=== PATIENT | male | born 1935 | race Caucasian/White ===

== ENCOUNTER 2016-03-24 15:54 | Inpatient (IN) | payer OTHER, MEDICARE ==
[~2016-03-24] VITALS: Ht 180.3 cm; Wt 84.9 kg
[~2016-03-24 15:54] MED LIST: ATOR20TA15 PO; ENAL5TAB PO
[2016-03-25] MEDS ORDERED: EXPAREL PERI-ARTICULAR INJECTION (TOTAL VOL. 60 ML) P-ARTICULR SCH ×2 (07:30)
[2016-03-25] MEDS ORDERED: INSULIN HUMAN REGULAR 1,000 UNITS/10 ML VIAL SQ PRN (07:30)
[2016-03-25] MEDS ORDERED: SODIUM CHLORIDE 0.9% IV SCH ×2 (07:30→12:00)
[2016-03-25] MEDS ORDERED: METOPROLOL TARTRATE 25 MG TAB PO PRN (07:30)
[2016-03-25] MEDS ORDERED: VANCOMYCIN 1000 MG/NS 250 ML (for <70 kg) IV SCH ×2 (07:30)
[2016-03-25] MEDS ORDERED: SODIUM CHLORID 0.9% 500 ML IV SCH (07:30)
[2016-03-25] MEDS ORDERED: CLINDAMYCIN 900 MG/NS 100 ML IV SCH ×2 (07:30)
[2016-03-25] MEDS: LACTATED RINGER'S 1000 ML IV SCH (07:30)
[2016-03-25] MEDS ORDERED: TRANEXAMIC ACID IV SCH ×2 (07:30→12:00)
[2016-03-25] MEDS ORDERED: POVIDONE IODINE 7.5% SCRUB 118 ML BOTTLE TOP SCH (07:30)
[2016-03-25] MEDS ORDERED: SODIUM CHLORIDE 0.9% INJ 100 ML ONE (07:41)
[2016-03-25] MEDS ORDERED: DEXAMETHASONE SOD PHOS 20 MG/5 ML VIAL IV SCH (08:00)
[2016-03-25 08:02] VITALS: BP 124/68; PULSE 58; RESP 20; TEMP 97.7; O2SAT 94
[2016-03-25] MEDS ORDERED: GENTAMICIN SULFATE 80 MG/2 ML VIAL ONE (09:13)
[2016-03-25] MEDS ORDERED: ACETAMINOPHEN 1000 MG/100 ML VIAL IV ONE (09:32)
[2016-03-25] MEDS ORDERED: MIDAZOLAM HCL 2 MG/2 ML VIAL ONE (09:32)
[2016-03-25] MEDS ORDERED: FAMOTIDINE 20 MG/2 ML VIAL ONE (09:32)
[2016-03-25] MEDS: SODIUM CHLOR 0.9% 1000 ML INJ 1,000 ML IV SCH ×2 (11:12→21:22)
[2016-03-25] MEDS ORDERED: ACETAMINOPHEN/HYDROcodone 325 MG/5 MG TAB PO PRN (11:15)
[2016-03-25] MEDS ORDERED: BISACODYL 10 MG SUPP PR PRN (11:15)
[2016-03-25] MEDS ORDERED: SODIUM CHLORIDE 0.9% FLUSH 5 ML FLUSH IVF PRN (11:15)
[2016-03-25] MEDS ORDERED: Post-op Orders (for Pharmacy) MISC XX ONE (11:15)
[2016-03-25] MEDS ORDERED: diphenhydrAMINE HCL 50 MG/ML VIAL IV PRN (11:15)
[2016-03-25] MEDS ORDERED: MORPHINE SULFATE 4 MG/ML INJ IV PUSH PRN (11:15)
[2016-03-25] MEDS ORDERED: ALUMINUM/MAGNESIUM/SIMETH 30 ML CUP PO PRN (11:15)
[2016-03-25] MEDS ORDERED: MAGNESIUM HYDROXIDE SUSP 30 ML CUP PO PRN (11:15)
[2016-03-25] MEDS ORDERED: NALOXONE HCL 0.4 MG/ML AMP IV PRN (11:15)
[2016-03-25] MEDS ORDERED: ONDANSETRON HCL 4 MG/2 ML VIAL IVP PRN (11:15)
[2016-03-25] MEDS ORDERED: ZOLPIDEM TARTRATE 5 MG TAB PO PRN (11:15)
--- NOTE | 2016-03-25 11:16 | PD.OP ---
cc: Vega Bhatia MD Operative Report Date of Surgery: Mar 25, 2016 Preoperative Diagnosis: Right hip severe osteoarthritis Postoperative Diagnosis: Same Procedure: Right total hip arthroplasty Anesthesia: Spinal Surgeon: Vega Bhatia Sorting Grapple Operator(s): ENIO Lim The surgical procedure was assisted by my Advanced Registered Nurse Practitioner. My HARDWOOD FLOOR FINISHER presence was necessary throughout this case for the manipulation and positioning of the surgical extremity. My HARDWOOD FLOOR FINISHER was assisting me throughout the duration of this procedure. The skill set of an Advance Registered Nurse Practitioner was medically necessary to complete this procedure. During the surgical case, the neurosurgical nurse practitioner was working at the back table and the Advance Registered Nurse Practitioner was directly assisting me. Operation and Findings: IMPLANT DESCRIPTION: 1. [place] Gription Cup, acetabular size 60. 2. [place] AltrX polyethylene, neutral. 4. [place]ail femoral stem size 15, no collar, high offset. 5. Femoral head/neck metal, 36, +5. ESTIMATED BLOOD LOSS: 250 cc. JUSTIFICATION FOR PROCEDURE: The patient has end-stage osteoarthritis to the hip. There is an attached conservative measures pathway form in the chart that describes the nonoperative measures that were undertaken prior to consideration of surgical management. The patient understood the risks and benefits of surgical management. See my office notes for further details. PROCEDURE: The patient was brought back to the operative theatre. Adequate anesthesia was obtained. The patient received intravenous clindamycin and vancomycin. The patient was carefully placed on the operative table. The lower extremity was prepped and draped in the usual sterile fashion. Fluoroscopic images were obtained. We made a standard anterior incision over the hip. We dissected through the TFL fascia, exposing the anterior capsule. Arthrotomy was performed in a T-shaped fashion. The capsule was tagged with a #2 FiberWire. End-stage arthritis was identified. Osteotomy was performed through the femoral neck exposing the acetabulum. Remnants of the labrum were resected and osteophytes were removed. We sequentially reamed the acetabulum. We trialed the hip and placed the final cup into position. This was done under fluoroscopic guidance to obtain the appropriate inclination and anteversion. A manhole cover was placed into the acetabular component. We then placed the final polyethylene into position and confirmed that it was well seated. Capsular attachments on the calcar and the inner aspect of the greater trochanter were resected. On the proximal aspect of the femur we used a rongeur , box osteotome, canal finder, sequential broaches and lateralizing rasp. We calcar planed the proximal femur. Then thoroughly irrigated the wound. We trialed the hip with the appropriate size stem. We placed the final stem in to position and trialed again. The hip was stable while it was externally rotated 70 degrees when the leg was lowered to the floor. The final head was applied, and final fluoroscopic images were obtained. The wound was thoroughly irrigated again. Interarticular injection of liposomal bupivacaine was given. The capsule was closed with #2 FiberWire and #1 Vicryl. The deep fascia was closed with a #2 Stratafix, followed by 2-0 Vicryl in the skin and richard. Postop plan is to weight-bear as tolerated. DVT prophylaxis will be performed with Kapil, YAAKOV fitzpatrick, early mobilization, and Lovenox followed by aspirin. Vega Bhatia MD Mar 25, 2016 11:16
[2016-03-25] MEDS ORDERED: NORC5TAB PO (11:19)
[2016-03-25] MEDS ORDERED: ENOX40P SQ (11:19)
[2016-03-25] MEDS ORDERED: ASPI325T PO (11:19)
[2016-03-25] MEDS ORDERED: DO NOT ADM ANY ANTICOAGULANT DRUGS XX PRN (11:37)
--- NOTE | 2016-03-25 11:39 | RADRPT ---
EXAM DATE/TIME: 03/25/2016 10:10 [facility] COMPARISON: No previous studies available for comparison. INDICATIONS : Post-op total right hip arthroplasty. MEDICAL HISTORY : None. SURGICAL HISTORY : None. ENCOUNTER: Initial ACUITY: 1 day PAIN SCORE: Non-responsive. LOCATION: Right hip. FINDINGS: The patient is status post a total hip arthroplasty with a bipolar prosthesis. Prosthesis is well-sea jennifer. Alignment is anatomic. A fracture is not appreciated. CONCLUSION: Anatomic alignment. Quentin Cruz MD FACR Board Certified Radiologist. This report was verified electronically.
[2016-03-25] MEDS ORDERED: LACTATED RINGER'S 1000 ML INJ 1,000 ML IV ONE (12:05)
[2016-03-25] MEDS ORDERED: PROPOFOL 200 MG/20 ML AMP IV ONE (12:05)
[2016-03-25] MEDS ORDERED: ePHEDrine/NS 50 MG/5 ML SYR IV ONE (12:05)
[2016-03-25] MEDS ORDERED: ONDANSETRON HCL 4 MG/2 ML VIAL IV PUSH ONE (12:05)
[2016-03-25] MEDS ORDERED: PHENYLEPH/NS 1000 MCG/10 ML SYR IV ONE (12:05)
[2016-03-25] MEDS ORDERED: *morphine SULFATE 8 MG/ML PERIprocedure ONLY ONE (12:09)
[2016-03-25] MEDS: ACETAMINOPHEN/HYDROcodone 325 MG/5 MG TAB PO PRN ×2 (13:00→21:21)
--- NOTE | 2016-03-25 13:35 | RADRPT ---
EXAM DATE/TIME: 03/25/2016 12:23 [facility] COMPARISON: No previous studies available for comparison. INDICATIONS : Post-op total right hip arthroplasty. MEDICAL HISTORY : None. SURGICAL HISTORY : Appendectomy. Umbilical hernia repair. Bilateral inguinal hernias. ENCOUNTER: Initial ACUITY: 1 day PAIN SCORE: 0/10 LOCATION: Right Hip. FINDINGS: Examination of the hip demonstrates total hip arthroplasty in satisfactory position. The alignment is anatomic. CONCLUSION: Post surgical changes as above. Wayne Lea MD on March 25, 2016 at 13:33 Board Certified Radiologist. This report was verified electronically.
[2016-03-25 15:24] VITALS: BP 134/65; PULSE 60; RESP 18; TEMP 95.3; O2SAT 97
--- NOTE | 2016-03-25 16:03 | HHI.DCPOC ---
Discharge Care Plan Diagnosis: (1) Osteoarthritis of right hip (2) Status post total hip replacement, right Your Health Problems Are: Difficulty with ADL Goals to Promote Your Health * To prevent worsening of your condition and complications * To maintain your health at the optimal level Directions to Meet Your Goals Take your medications as prescribed Follow your dietary instruction Follow activity as directed Keep your appointments as scheduled Take your immunizations and boosters as scheduled If your symptoms worsen call your PCP, if no PCP go to Urgent Care Center or Emergency Room Smoking is Dangerous to Your Health. Avoid second hand smoke Call the 24-hour hour crisis hotline for domestic abuse at Marcos Holt Mar 25, 2016 16:03
--- NOTE | 2016-03-25 16:05 | HHI.FF ---
Face to Face Verification Diagnosis: (1) Osteoarthritis of right hip (2) Status post total hip replacement, right Physical Therapy Gait training, Transfer training, bed to chair Hip: Total hip Right LE Weight Bearing: WB as tolerated Right LE Range of Motion: Active ROM Nursing Nursing: Daysi teaching, Dressing changes Dressing Changes: Daily dressing change I have seen patient Margarito Holland on 03/25/16. My clinical findings support the need for the requested home health care services because: Limited ability to care for self High risk of falls I certify that my clinical findings support that this patient is homebound because: Post-op weakness Unsteady gait/balance Marcos Holt Mar 25, 2016 16:04
[2016-03-25] MEDS ORDERED: WALKER WHEELS/F1 MIS (16:06)
[2016-03-25] MEDS ORDERED: COMMODE 3-IN-11 MIS (16:06)
--- NOTE | 2016-03-25 16:17 | PD.CONS ---
HPI Service [facility] Hospitalists Consult Requested By Dr. Bhatia Reason for Consult Medical management Primary Care Physician No Primary Care Physician Diagnoses: (1) Osteoarthritis of right hip (2) HTN (hypertension) (3) Hyperlipidemia History of Present Illness 81-year-old male with a medical history significant for osteoarthritis, AAA s/p stent placement, HTN, Hyperlipidemia admitted to the Hospital for right hip arthroplasty. Hospital service consulted for medical management. Patient is seen post op. He reports that he is feeling ok. The patient reports he has been having persistent issue with hip arthritis. He failed conservative measures and have decided to undergo right hip arthroplasty. Regarding HTN, he reports that it has been well controlled with Enalapril. He denies any exertional dyspnea or chest pain. Review of Systems Constitutional: DENIES: Fever, Chills Musculoskeletal: COMPLAINS OF: Joint pain Other All other systems reviewed and are negative. Past Family Social History Allergies: Coded Allergies: Penicillin (Verified Allergy, Severe, Hives, 03/25/16) Past Medical History osteoarthritis, AAA s/p stent placement, HTN, Hyperlipidemia Past Surgical History Abdominal aortic aneurysm stent placement Appendectomy Reported Medications Reported Meds & Active Scripts Active [place] (Hydrocodone-Acetaminophen) 5-325 mg Tab 1-2 Tab PO Q4H PRN Aspirin 325 Mg Tab 325 Mg PO DAILY Start Aspirin after Lovenox is completed. Lovenox Inj (Enoxaparin Sodium) 40 Mg/0.4 Ml Syr 40 Mg SQ DAILY PRN Start Aspirin after Lovenox is completed. Reported Atorvastatin (Atorvastatin Calcium) 20 Mg Tab 20 Mg PO DAILY Enalapril (Enalapril Maleate) 5 Mg Tab 5 Mg PO DAILY Family History Significant family history of different type of cancers. Father had throat cancer, multiple brothers with leukemia. Social History Patient reports that he smoked half a pack per day for about 40 years. He quit 9 years ago. He denies alcohol or illicit drugs. Physical Exam Vital Signs Vital Signs Date Time Temp Pulse Resp B/P Pulse Ox O2 Delivery O2 Flow Rate FiO2 03/25/16 15:24 95.3 60 18 134/65 97 03/25/16 14:00 59 18 130/66 99 Nasal Cannula 3 03/25/16 13:00 58 18 116/62 99 Nasal Cannula 3 03/25/16 12:00 59 18 121/65 98 Nasal Cannula 3 03/25/16 11:45 88 18 113/58 98 Nasal Cannula 3 03/25/16 11:37 97.2 79 18 108/56 98 Nasal Cannula 3 03/25/16 08:02 97.7 58 20 124/68 94 Physical Exam GENERAL: This is a well-nourished, well-developed patient, in no apparent distress. SKIN: No rashes, ecchymoses or lesions. Cool and dry. HEAD: Atraumatic. Normocephalic. No temporal or scalp tenderness. EYES: Pupils equal round and reactive. Extraocular motions intact. No scleral icterus. No injection or drainage. ENT: Nose without bleeding, purulent drainage or septal hematoma. Throat without erythema, tonsillar hypertrophy or exudate. Uvula midline. Airway patent. NECK: Trachea midline. No JVD or lymphadenopathy. Supple, nontender, no meningeal signs. CARDIOVASCULAR: Regular rate and rhythm without murmurs, gallops, or rubs. RESPIRATORY: Clear to auscultation. Breath sounds equal bilaterally. No wheezes , rales, or rhonchi. GASTROINTESTINAL: Abdomen soft, non-tender, nondistended. No hepato-splenomegaly , or palpable masses. No guarding. MUSCULOSKELETAL: Extremities without clubbing, cyanosis, or edema. Postop right hip dressing is clean and dry. Neurovascularly intact distally. NEUROLOGICAL: Awake and alert. Cranial nerves II through XII intact. Motor and sensory grossly within normal limits. Five out of 5 muscle strength in all muscle groups. Normal speech. Laboratory Laboratory Tests Test 03/25/16 07:59 Blood Type A POSITIVE Antibody Screen NEGATIVE Blood Bank Comment Assessment and Plan Assessment and Plan 81-year-old male with Osteoarthritis of the right hip status post total right hip arthroplasty: - Continue routine postop care per orthopedics. - Pain control - PT unable. Hypertension: Currently controlled. Continue enalapril. Monitor blood pressure. History of abdominal aortic aneurysm status post stent placement: Control blood pressure as above. Continue aspirin. Hyperlipidemia: Continue statin GI prophylaxis: Stool softener PRN constipation. DVT PPx: Lovenox to start tomorrow per orthopedics. Alexia Harp MD Mar 25, 2016 16:17
[2016-03-25] MEDS: CLINDAMYCIN INJ 900 MG in SODIUM CHLORIDE 0.9% INJ 100 ML IV SCH (16:41)
[2016-03-25 18:41] VITALS: O2SAT 97
[2016-03-25 20:00] VITALS: BP 119/72; PULSE 72; RESP 18; TEMP 95.7; O2SAT 98
[2016-03-25] MEDS: SODIUM CHLORIDE 0.9% FLUSH 5 ML FLUSH IVF SCH (20:46)
[2016-03-26] MEDS: CLINDAMYCIN INJ 900 MG in SODIUM CHLORIDE 0.9% INJ 100 ML IV SCH ×2 (00:01→08:39)
[2016-03-26 00:20] VITALS: BP 116/60; PULSE 60; RESP 17; TEMP 96.7; O2SAT 97
[2016-03-26 04:55] LABS: HEMATOCRIT 33.1 % (39.0-51.0); MEAN CELL VOLUME 84.2 FL (80.0-100.0); MEAN CORPUSCULAR HEMOGLOBIN 29.2 PG (27.0-34.0); MEAN CORPUSCULAR HGB CONC 34.6 % (32.0-36.0); PLATELET COUNT 178 TH/MM3 (150-450); RED BLOOD COUNT 3.93 MIL/MM3 (4.50-5.90); RED CELL DISTRIBUTION WIDTH 14.6 % (11.6-17.2); REVIEW FLAG FINAL; WHITE BLOOD COUNT 10.6 TH/MM3 (4.0-11.0)
[2016-03-26 06:42] VITALS: BP 137/71; PULSE 106; RESP 17; TEMP 97.3; O2SAT 95
[2016-03-26] MEDS: SODIUM CHLOR 0.9% 1000 ML INJ 1,000 ML IV SCH (07:12)
[2016-03-26] MEDS: LACTATED RINGER'S 1000 ML IV SCH (07:30)
[2016-03-26] MEDS ORDERED: DEXAMETHASONE SOD PHOS 20 MG/5 ML VIAL IV ONE (07:45)
[2016-03-26 08:14] VITALS: BP 114/52; PULSE 62; RESP 16; TEMP 96.5; O2SAT 98
[2016-03-26] MEDS: SODIUM CHLORIDE 0.9% FLUSH 5 ML FLUSH IVF SCH (08:39)
[2016-03-26 08:54] VITALS: O2SAT 96
[2016-03-26] MEDS ORDERED: ATORVASTATIN 20 MG TAB PO SCH (09:00)
[2016-03-26] MEDS ORDERED: ENALAPRIL MALEATE 5 MG TAB PO SCH (09:00)
[2016-03-26] MEDS ORDERED: ENOXAPARIN SODIUM 40 MG/0.4 ML SYRINGE SQ SCH (10:30)
[2016-03-26] MEDS: ACETAMINOPHEN/HYDROcodone 325 MG/5 MG TAB PO PRN (10:49)
--- NOTE | 2016-03-26 11:59 | PD.ORT.PN ---
Subjective Post Op Day #: 1 Subjective Remarks Patient is OOB in chair with little to no hip pain. Patient is voiding and ambulatory. Objective Vitals Vital Signs Date Time Temp Pulse Resp B/P Pulse Ox O2 Delivery O2 Flow Rate FiO2 03/26/16 08:54 96 21 03/26/16 08:14 96.5 62 16 114/52 98 03/26/16 06:42 97.3 106 17 137/71 95 03/26/16 00:20 96.7 60 17 116/60 97 03/25/16 20:00 95.7 72 18 119/72 98 03/25/16 18:41 97 21 03/25/16 15:24 95.3 60 18 134/65 97 03/25/16 14:00 59 18 130/66 99 Nasal Cannula 3 03/25/16 13:00 58 18 116/62 99 Nasal Cannula 3 03/25/16 12:00 59 18 121/65 98 Nasal Cannula 3 I/O 03/25/16 03/25/16 03/25/16 03/26/16 03/26/16 03/26/16 07:00 15:00 23:00 07:00 15:00 23:00 Intake Total 1500 ml 964 ml 1301 ml 465 ml Output Total 1100 ml 800 ml 550 ml Balance 400 ml 164 ml 751 ml 465 ml Intake Oral 100 ml 480 ml 480 ml IV Total 200 ml 484 ml 821 ml 465 ml Other 1200 ml Output Urine Total 450 ml 800 ml 550 ml Estimated Blood Loss 200 ml Other 450 ml # Bowel Movements 0 0 Result Diagram: 03/26/16 0342 Procedures Right ALON Objective Remarks The patient's dressing was changed today with scant serosanguineous drainage. Incision is well approximated with surgical clips intact. No redness or s/s of infection. EHL/TA/G intact. 2+ pedal pulse. + SILT. No swelling. Calf is soft and nontender. Assessment & Plan Ortho Post Op Day #: 1 Problem List: Assessment and Plan POD #1: Right ALON 1. WBAT RLE 2. Lovenox for DVT prophylaxis 3. Ice to the right hip PRN] 4. Stable for discharge home with home health today. Marcos Holt Mar 26, 2016 11:59
[2016-03-26 12:30] VITALS: BP 120/60; PULSE 60; RESP 16; TEMP 97.4; O2SAT 98
[2016-03-26] MEDS ORDERED: MULTIVITAMINS/MINERALS THERAPEUTIC TAB PO SCH (21:00)
[2016-03-26] MEDS ORDERED: DOCUSATE SODIUM 100 MG CAP PO SCH (21:00)
--- NOTE | 2016-03-29 18:46 | HHI.DS ---
Discharge Summary Admission Date Mar 25, 2016 at 06:55 Discharge Date: Mar 26, 2016 Admitting Diagnosis OA of the right hip Status post right ALON Diagnosis: (1) Osteoarthritis of right hip Diagnosis: Principal (2) Status post total hip replacement, right Diagnosis: Principal Procedures Right ALON Brief History This is a 81 year old male patient with severe OA of the right hip. CBC/BMP: 03/26/16 0342 PE at Discharge The patient's dressing was changed today with scant serosanguineous drainage. Incision is well approximated with surgical clips intact. No redness or s/s of infection. EHL/TA/G intact. 2+ pedal pulse. + SILT. No swelling. Calf is soft and nontender. Hospital Course The patient was admitted to the hospital with severe OA of the right hip to have a right ALON. The patient's surgery went well with no complication. The patient had a normal hospital course. The patient is WBAT. The patient was discharged home with home health and will f/u with Dr. Bhatia in 1-2 weeks. Pt Condition on Discharge: Stable Discharge Disposition: Disch w/ Home Health Serv Discharge Instructions Diet Instructions: As Tolerated, No Restrictions Activities You Can Perform: Weight Bearing as Fabby Activities to Avoid: Strenuous Activity Follow up Referrals: Orthopedics with eVga Bhatia MD New Medications: Aspirin (Aspirin) 325 Mg Tab 325 MG PO DAILY Start Aspirin after Lovenox is completed. Prevent Blood Clot # 30 Ref 0 TAB Commode 3-in-1 (Commode 3-in-1) 1 Mis Mis 1 EA .ROUTE DIRECTED #1 Ref 0 EA Enoxaparin Inj (Lovenox Inj) 40 Mg/0.4 Ml Syr 40 MG SQ DAILY Start Aspirin after Lovenox is completed. PRN Blood Clot Prevention #10 Ref 0 SYRINGE Hydrocodone-Acetaminophen ([place]) 5-325 mg Tab 1-2 TAB PO Q4H PRN PAIN #60 Ref 0 TAB Walker with Front Wheels (Walker with Front Wheels) 1 Mis Mis 1 EA .ROUTE DIRECTED #1 Ref 0 EA Continued Medications: Atorvastatin (Atorvastatin) 20 Mg Tab 20 MG PO DAILY Cholesterol Management #30 Ref 0 TAB Enalapril (Enalapril) 5 Mg Tab 5 MG PO DAILY #30 Ref 0 TAB Marcos Holt Mar 29, 2016 18:46
== END 2016-03-26 16:54 | disposition home health service (06) | DRG 470 ==
LOC: HSDI 03-25 06:55 → N06A 03-25 14:18
PROVIDERS: ADMIT Orthopaedic Surgery; ATTEND Orthopaedic Surgery
PROC: 0SR902Z Replacement of Right Hip Joint with Metal on Polyethylene Synthetic Substitute, Open Approach (ICD-10-PCS; principal; 2016-03-25 09:34)
DX: M16.11 Unilateral primary osteoarthritis, right hip (principal); I10 Essential (primary) hypertension; E78.5 Hyperlipidemia, unspecified; Z86.79 Personal history of other diseases of the circulatory system; Z87.891 Personal history of nicotine dependence
CPT/HCPCS: 73502; 76000; 85027; 86850; 86900; 86901; 94150; C1776; C9290; J0131; J1100; J1580; J1650; J2250; J2270; J2370; J2405; J3010; J3370; J7030; J7050; J7120

== ENCOUNTER 2017-12-08 05:55 | Inpatient (IN) ==
[~2017-12-08 05:55] MED LIST changes: -ATOR20TA15 PO; -ENAL5TAB PO; +Metoprolol Tartrate 25 MG Tablet PO SCH
[2017-12-08] MEDS ORDERED: Heparin - SQ 10,000 UNITS/ML Vial ONE (06:13)
[2017-12-08] MEDS ORDERED: Chlorhexidine Gluconate 2% 1 Pack (2 Cloths) TOPICAL ONE (06:27)
[2017-12-08] MEDS ORDERED: Metoprolol Tartrate 25 MG Tablet PO ONE (06:27)
[2017-12-08] MEDS ORDERED: Dextrose 50% in Water 50 ML Vial IV.PUSH PRN (06:28)
[2017-12-08] MEDS ORDERED: Chlorhexidine 4% Topical 120 APPLIC/120 ML Bottle TOPICAL SCH (06:30)
[2017-12-08] MEDS ORDERED: Sodium Chlor 0.9% Inj 500 ML IV.SIG SCH (07:00)
[2017-12-08] MEDS ORDERED: Insulin Regular (For Infusion) 100 UNIT in Sodium Chlor 0.9% Inj 99 ML IV.CONT PRN ×2 (07:30→11:17)
[2017-12-08] MEDS ORDERED: Sodium Chloride 0.9% Irr Bot 1,000 ML, Vancomycin Inj 1,000 MG IRRIGATION SCH ×2 (07:30)
[2017-12-08] MEDS ORDERED: Vancomycin Inj 1,500 MG in Sodium Chlor 0.9% Inj 500 ML IV.SIG SCH (07:30)
[2017-12-08] MEDS ORDERED: Sodium Chlor 0.9% Inj 77.5 ML, Papaverine Inj 60 MG, Nitroglycerin Inj 100 MCG, dilTIAZ... IRRIGATION SCH ×3 (07:30)
[2017-12-08] MEDS ORDERED: Potassium Chlor 40 mEq Premix 40 MEQ/100 ML PIGGYBACK ONE (08:53)
--- NOTE | 2017-12-08 11:05 | P.PNCV ---
- Note Subjective/Hospital Course: pt seen and evaluated 11/25/17. 82-year-old patient of Dr. Strauss and Dr. Marcos Pelaez who was being worked up for clearance for a left hip surgery. He was to undergo orthopedic surgery by Dr. Bhatia. He presented to Dr. Strauss for preop risk stratification. He underwent cardiac stress test with Lexiscan that showed an EF greater than 65%, moderate ischemia of the inferior and inferoapical wall, which led to heart catheterization today, which showed a 50% left main, proximal LAD 90%, the mid distal 20, the OM 50, the RCA 40%, the circ was 30. We were consulted to evaluate for coronary artery bypass grafting. The patient denies any recent chest pain or shortness of breath. He has usually been very active up until 6 weeks ago. He has had more pain in his left hip where he has been using a cane. PAST MEDICAL HISTORY: Includes abdominal aortic aneurysm with repair and EVAR Medtronic graft in 05/2009, history of pancreatitis, alcohol dependence. 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 12/08 pt electively admitted for surgery Labs: Laboratory Results - last 12 hr 12/08/17 06:42 Blood Type A Positive Antibody Screen Negative MTS Gel Crossmatch See Detail Bld Prod Order Comment - Plan (1) CAD (coronary artery disease), [place] coronary artery (1) CAD (coronary artery disease), [place] coronary artery Qualifiers: [place] vs. transplanted heart: [place] heart
[2017-12-08] MEDS ORDERED: Dexmedetomidine Inj 200 MCG in Sodium Chlor 0.9% Inj 48 ML IV.CONT PRN (11:17)
[2017-12-08] MEDS ORDERED: hydrALAZINE HCl Inj 20 MG/ML Vial IV.PUSH PRN (11:17)
[2017-12-08] MEDS ORDERED: Phenylephrine Inj 40 MG in Sodium Chlor 0.9% Inj 496 ML IV.CONT PRN (11:17)
[2017-12-08] MEDS ORDERED: Calcium Chloride Inj 1 GM/10 ML Syringe IV.PUSH PRN (11:17)
[2017-12-08] MEDS ORDERED: Calcium Chloride Inj 1 GM in Sodium Chlor 0.9% Inj 100 ML IV.SIG PRN (11:17)
[2017-12-08] MEDS ORDERED: Ketorolac Inj 30 MG/ML (IVP) Vial IV.PUSH PRN (11:17)
[2017-12-08] MEDS ORDERED: Albumin Human 5% Inj 250 ML IV.SIG PRN (11:17)
[2017-12-08] MEDS ORDERED: Post-op Orders (for Pharmacy) OTHER STA (11:17)
[2017-12-08] MEDS ORDERED: Acetaminophen 325 MG Tablet PO PRN (11:17)
[2017-12-08] MEDS ORDERED: RESP: Racemic Epinephrine 2.25% 0.5 ML Neb NEB SCH (11:17)
[2017-12-08] MEDS ORDERED: Metoprolol Inj 5 MG/5 ML Vial IV.PUSH PRN (11:17)
[2017-12-08] MEDS ORDERED: Magnesium Sulfate Inj 2 GM in Sodium Chlor 0.9% Inj 96 ML IV.SIG PRN ×4 (11:17)
[2017-12-08] MEDS ORDERED: Morphine Sulfate Inj 2 MG/ML Vial IV.PUSH PRN (11:17)
[2017-12-08] MEDS ORDERED: Potassium Chlor 20 mEq Premix 20 MEQ/100 ML PIGGYBACK IV.SIG PRN ×3 (11:17)
--- NOTE | 2017-12-08 11:18 | P.DCO ---
- Diagnosis (1) CAD (coronary artery disease), [place] coronary artery (3) Hyperlipidemia (4) Hypertension - Home Health Nursing Order: Medical education, Signs/symptoms of disease process, Wound care and dressing changes, Nursing assessment with vital signs Instructions: Heart and Vascular Surgery patients *Special attention to sternal dressing Mandatory frequency Assess and evaluation, 4 days in a row The next week 3X week 2 times a week for 4 weeks 1 time a week for 5 weeks Schedule Heart and Vascular patients for full 60 day certification period Initial visit Review Open Heart Surgery Discharge Instructions (Sternal precautions, Activity, Elastic hose, Incision care, Driving, Incentive spirometry, Smoking, [place], Work and other) Need Betadine to paint incision Medication reconciliation Importance of follow up care/ check on appointments Make calendar record temperature daily When to call [facility] at Home nurse, review instructions, phone list Incentive Spirometry, demonstration Visit 1- Begin discharge instruction for patient family and/ or caregiver using teach back method- Signs and symptoms of infection Disease characteristics Medicines and side effects Foods and nutrition/ appetite Infection control/ hand washing/ hygiene Visit 2- Continue teaching Discharge instructions- include additional information on smoking cessation , sternal dressing (sternal vac) Visit 3- Continue teaching- Cough and deep breathing, incision monitoring. Choose my plate Visit 4- Continue teaching- Discuss limitations Discuss how they are feeling Discuss progress toward goals Remaining visits- continue teaching and monitoring For any questions please call : Wednesday 8am-5pm Heart & Vascular Surgery Office ( Dr. Patino & Dr. Rawls), After Hours / Nights (5pm -8am) Weekends and Holidays Please call [facility] Cardiac Intermediate Care Unit (CIC) Charge Nurse PREVENA Single Use Negative Wound Therapy System Caregiver Instruction Sheet 1. A Prevena dressing system was applied to the chest incision during surgery , to promote wound healing. It works via a suction device (negative pressure wound therapy) to remove low to moderate levels of exudate (drainage) and infectious materials. We recommend that the device stay in place for up to seven days, from day of surgery. 2. Day of Surgery___12/08/17 Day of Removal ___12/15/17 3. The dressing should only be removed by a health certified caregiver. Please arrange removal of device to coincide with Home Health visit and or with Nursing staff at Rehab 4. If skin reddening or irritation of skin occurs, or excessive drainage, please notify the Cardiovascular Surgeons office at [phone]. 5. Light showering is permissible; however the pump should be disconnected and placed in safe location, where it will not get wet. The dressing should not be exposed to direct spray or submerged in water. No bath tub / shower only. Ensure the end of the tubing attached to the dressing is facing down so that water does not enter the top of the tube. 6. To remove Prevena dressing: press purple button to turn off device / remove the suction. Then disconnect the tubing from the pump. The fixation strips should be stretched away from the skin and the dressing lifted at one corner and peeled back until it has been fully removed. 7. After removal, it is ok to shower daily using liquid dial soap and clean wash cloth, rinse and pat dry, and leave incision open to air dry. For any concerns regarding Prevena dressing, and or wounds, please contact Mona Butt, patient navigator at [phone] or notify the Cardiovascular Surgeons office at [phone]. Incentive spirometry Q1 hr x 10, while awake, also use acapella device hourly whole awake Sternal Breast Bone Precautions: NO pushing or pulling, ( pt must use sternal pillow to support chest with all activities and with coughing ( takes up to 3 months breast bone to heal ) Daily incision care: ok to shower daily, no tub bath. Wash all incisions with liquid dial soap, clean wash cloth to each site, rinse and pat dry. Observe for any signs of infection, such as drainage which is dark yellow, galeano, green or foul smelling. Immediately report to the surgeon any drainage from the chest incision, or legs, and for any abnormal drainage from the chest tube sites. Notify surgeon if any temp >101.5 degrees F. When specialty dressing removed/ or if you do not have one, continue to shower daily as above, then rinse and pat incision dry and paint with betadine daily x 5 days. Allow steri strips to fall off if you have any. Avoid lotions, creams, salves, oils, etc. for the first month Please see attached forms for additional instructions regarding post Open Heart specialty wound vacuum dressings. EARL or Prevena , Dressing to be removed by Nursing staff on ___12/15/17____ F/U appointment: as per DC instructions: PCP in 2 weeks, CV surgeon 2 weeks, Ammonium Hydroxide Operator 3-4 weeks For any questions regarding incisions/ dressing / meds / post op care or above Symptoms, Wednesday 8am-5pm Heart & Vascular Surgery Office ( Dr. Patino & Dr. Rawls), After Hours / Nights (5pm -8am) Weekends and Holidays Please call [facility] Cardiac Intermediate Care Unit (CIC) Charge Nurse - Case Management Consult Yes - Certification I have seen patient Margarito Holland on 12/08/17. My clinical findings support the need for the requested home health care services because: Deconditioned with increased weakness I certify that my clinical findings support that this patient is homebound because: Post-op weakness (1) CAD (coronary artery disease), [place] coronary artery Qualifiers: [place] vs. transplanted heart: [place] heart (3) Hyperlipidemia Qualifiers: Hyperlipidemia type: mixed hyperlipidemia Qualified Code(s): E78.2 - Mixed hyperlipidemia (4) Hypertension Qualifiers: Hypertension type: essential hypertension Qualified Code(s): I10 - Essential (primary) hypertension
--- NOTE | 2017-12-08 11:27 | P.OP ---
Date of procedure: 12/08/17 Anesthesia: AYALAA Surgeon: Shellie Patino MD Operation and Findings: PREPROCEDURE DIAGNOSES 1. Severe Two Vessel Coronary Artery Disease. 2. Abdominal aortic aneurysm status post EVAR 3. Chronic alcohol use 4. Chronic kidney disease POSTPROCEDURE DIAGNOSES Same SURGICAL PROCEDURE 1. Off-pump Coronary Artery Bypass Grafting x 2 with Left Internal Mammary Artery (BIANCHI) to Left Anterior Descending (LAD), reverse saphenous vein graft to obtuse Marginal branch of the left Circumflex artery 2. Left leg Endoscopic Vein [place] 3. Intraoperative Vein Mapping. SURGEON Shellie Patino MD FAMILY MEMBER CARETAKER Demetrius Malcolm, MEGAN Alejandre, [facility] General endotracheal SOFTWARE TEST SPECIALIST DRU Samson MD PREPARATION ChloraPrep. COUNTS Needle, sponge, and instrument counts were correct. DRAINS Two 32-Amharic mediastinal tubes. COMPLICATIONS None. INDICATIONS FOR PROCEDURE The patient is a 82-year-old presenting with coronary artery disease prior to hip replacement surgery. Patient was noted to have 2 vessel coronary artery disease. The patient is being brought to the operating room for surgical revascularization therapy. PROCEDURE Patient was brought to the operating room and placed supine on the OR table. Following the induction of adequate general endotracheal anesthesia and placement of appropriate monitoring devices, intraoperative vein mapping was performed which revealed good-caliber conduit in bilateral lower extremities. The patient was then prepped and draped in standard sterile fashion. Next, 2500 units of intravenous heparin was given. The left greater saphenous vein was harvested endoscopically. This appeared to be a useable-caliber conduit. Simultaneously, a median sternotomy was performed and the left internal mammary artery dissected free off the posterior sternal table. The patient was systemically heparinized and anticoagulation monitored by serial ACT measurements. The internal mammary artery had excellent pulsatile flow in it and was a good-caliber conduit. The pericardium was then divided in the midline , the cradle created and targets analyzed. At this point, all anastomoses were performed in a beating-heart fashion using the [employer] Dream stabilizing system. The left internal mammary artery was anastomosed to the mid LAD (2 mm) in an end-to- side fashion using 7-0 Prolene. Segment of saphenous vein graft was then anastomosed to the OM1 (2.25 mm) in an end-to-side fashion using 7-0 Prolene. The proximal anastomosis was then constructed to the ascending aorta in a running manner using 6-0 Prolene. All anastomotic sites were inspected and appeared to be hemostatic and patent. Protamine solution was given. Strict hemostasis was assured. The closure was undertaken. 2 chest tubes were placed. The pericardium was reapproximated in the midline. The sternum was approximated using sternal wires. The muscular and fascial layer were then closed in 3 layers. The endoscopic vein harvest site was closed in 2 layers. The patient tolerated the procedure well and was transferred to CVICU in stable condition.
[2017-12-08] MEDS ORDERED: fentaNYL Citrate Inj 250 MCG/5 ML Ampul ONE (11:53)
--- NOTE | 2017-12-08 12:32 | XR ---
EXAM DATE: 12/08/2017 11:17 AM EDT AGE/SEX: 82 years / Male INDICATIONS: Post op open heart surgery. CLINICAL DATA: This is the patient's initial encounter. Patient reports that signs and symptoms have been present for 1 day and indicates a pain score of Nonresponsive. MEDICAL/SURGICAL HISTORY: None. None. COMPARISON: [facility] – [place], CHEST 2V PA&LAT, 11/25/2017. . FINDINGS: Median sternotomy wires are noted status post cardiac surgery. The heart is enlarged. Mediastinal ghassan in and left chest tube are in good positions. Focal discoid atelectasis is noted within left upper barbara ng field. The endotracheal tube has its tip 3 cm above the ryan in good position. Right internal ju gular central line has its tip in superior vena cava. CONCLUSION: 1. Discoid atelectasis within the left upper lung field. 2. Multiple tubes and lines are in good positions. 3. Cardiomegaly. Electronically signed by: Gentry Veliz MD 12/08/2017 12:30 PM EDT
[2017-12-08] MEDS ORDERED: Acetaminophen 650 MG Supp RECTAL PRN (14:00)
[2017-12-08] MEDS ORDERED: Clevidipine Inj 25 MG/50 ML VIAL IV.CONT PRN (14:00)
[2017-12-08] MEDS: fentaNYL Citrate Inj 100 MCG/2 ML Ampul IV.PUSH PRN ×2 (17:13→20:35)
[2017-12-08] MEDS: Amiodarone 200 MG Tablet PO SCH (20:35)
[2017-12-08] MEDS: Vancomycin Inj 1,000 MG in Sodium Chlor 0.9% Inj 250 ML IV.SIG SCH (20:35)
[2017-12-09] MEDS: fentaNYL Citrate Inj 100 MCG/2 ML Ampul IV.PUSH PRN ×2 (00:05→09:58)
--- NOTE | 2017-12-09 04:45 | XR ---
EXAM DATE: 12/09/2017 5:00 AM EDT AGE/SEX: 82 years / Male INDICATIONS: Post op CABG CLINICAL DATA: This is the patient's subsequent encounter. Patient reports that signs and symptoms h ave been present for 2 days and indicates a pain score of 5/10. MEDICAL/SURGICAL HISTORY: None. None. COMPARISON: [facility] – [place], [place], CHEST 1V SINGLE AP, 12/08/2017. . FINDINGS: Stable right IJ central line, mediastinal drain and left apical chest tube. No significant pneumothor ax. Improving atelectasis in the left upper lung zone with slight interval progression of patchy airs pace disease in the left lower lung zone. Cardiac silhouette is enlarged. Remainder of exam is unchan ged. CONCLUSION: 1. Stable tubes and lines. 2. Improving atelectasis in the left upper lung zone. 3. Progressive airspace disease in the left lung base. 4. No significant pneumothorax. Electronically signed by: iWl Greene MD 12/09/2017 4:43 AM EDT
[2017-12-09 05:57] LABS: Hematocrit 30.7 % (39.0-51.0); Hemoglobin 10.9 gm/dL (13.0-17.0); Mean Corpuscular HGB Conc 35.4 % (32.0-36.0); Mean Corpuscular Hemoglobin 31.2 pg (27.0-34.0); Mean Corpuscular Volume 88.2 fL (80.0-100.0); Mean Platelet Volume 7.8 fL (7.0-11.0); Platelet Count 149 th/mm3 (150-450); Red Blood Count 3.48 mil/mm3 (4.50-5.90); Red Cell Distribution Width 13.7 % (11.6-17.2); White Blood Count 7.6 th/mm3 (4.0-11.0)
[2017-12-09 06:13] LABS: Anion Gap 11 meq/L (5-15); Blood Urea Nitrogen 15 mg/dL (7-18); Calcium 7.8 mg/dL (8.5-10.1); Carbon Dioxide 25.4 meq/L (21.0-32.0); Chloride 108 meq/L (98-107); Glomerular Filtration Rate Greater Than 89 mL/min (>89); Glucose,Random 90 mg/dL (74-106); Magnesium 2.4 mg/dL (1.5-2.5); Sodium 144 meq/L (136-145)
[2017-12-09] MEDS ORDERED: Dextrose 50% in Water 50 ML Vial IV.PUSH PRN (08:29)
[2017-12-09] MEDS ORDERED: Bisacodyl 10 MG Supp RECTAL PRN (08:29)
[2017-12-09] MEDS: Vancomycin Inj 1,000 MG in Sodium Chlor 0.9% Inj 250 ML IV.SIG SCH ×2 (09:22→20:58)
[2017-12-09] MEDS: Multivitamin/Minerals Therapeutic Tablet PO SCH (09:22)
[2017-12-09] MEDS: Amiodarone 200 MG Tablet PO SCH ×2 (09:23→21:01)
[2017-12-09] MEDS: Metoprolol Tartrate 25 MG Tablet PO SCH ×2 (09:23→21:01)
--- NOTE | 2017-12-09 09:47 | P.PNCV ---
- Note Subjective/Hospital Course: pt seen and evaluated 11/25/17. 82-year-old patient of Dr. Strauss and Dr. Marcos Pelaez who was being worked up for clearance for a left hip surgery. He was to undergo orthopedic surgery by Dr. Bhatia. He presented to Dr. Strauss for preop risk stratification. He underwent cardiac stress test with Lexiscan that showed an EF greater than 65%, moderate ischemia of the inferior and inferoapical wall, which led to heart catheterization today, which showed a 50% left main, proximal LAD 90%, the mid distal 20, the OM 50, the RCA 40%, the circ was 30. We were consulted to evaluate for coronary artery bypass grafting. The patient denies any recent chest pain or shortness of breath. He has usually been very active up until 6 weeks ago. He has had more pain in his left hip where he has been using a cane. PAST MEDICAL HISTORY: Includes abdominal aortic aneurysm with repair and EVAR Medtronic graft in 05/2009, history of pancreatitis, alcohol dependence. 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 12/08 pt electively admitted for surgery surgery: PREPROCEDURE DIAGNOSES 1. Severe Two Vessel Coronary Artery Disease. 2. Abdominal aortic aneurysm status post EVAR 3. Chronic alcohol use 4. Chronic kidney disease POSTPROCEDURE DIAGNOSES Same SURGICAL PROCEDURE 1. Off-pump Coronary Artery Bypass Grafting x 2 with Left Internal Mammary Artery (BIANCHI) to Left Anterior Descending (LAD), reverse saphenous vein graft to obtuse Marginal branch of the left Circumflex artery 2. Left leg Endoscopic Vein [place] pt extubated after surgery 12/09 up in chair , on 2 liter nasal cannula pain controlled, in NSR on amiodarone, low dose BB, start JANAE ( home med) transfer to stepdown unit had some nausea this am , reglan scheduled x 4 doses OOB with PT Objective: Vital Signs - 24 hr 12/08/17 11:45 12/08/17 12:00 12/08/17 12:09 Temperature 94.5 F L Pulse Rate 56 L Respiratory Rate 9 L 16 16 Blood Pressure 113/54 L Pulse Oximetry 94 L 94 L 97 12/08/17 12:12 12/08/17 12:20 12/08/17 13:25 Temperature 94.5 F L Pulse Rate 60 Respiratory Rate Blood Pressure Pulse Oximetry 98 12/08/17 15:00 12/08/17 15:53 12/08/17 19:00 Temperature 97.8 F 98 F Pulse Rate 55 L 59 L 62 Respiratory Rate 18 15 16 Blood Pressure 113/57 L 110/53 L Pulse Oximetry 99 99 12/08/17 20:46 12/08/17 21:02 12/08/17 23:00 Temperature 97.8 F Pulse Rate 54 L 58 L Respiratory Rate 20 14 Blood Pressure 124/44 L Pulse Oximetry 99 98 98 12/09/17 03:00 12/09/17 04:08 12/09/17 04:09 Temperature 97.7 F Pulse Rate 71 59 L Respiratory Rate 16 20 Blood Pressure 115/44 L Pulse Oximetry 98 98 12/09/17 07:00 12/09/17 09:16 12/09/17 09:22 Temperature 97.8 F Pulse Rate 73 74 Respiratory Rate 18 18 Blood Pressure 126/58 L Pulse Oximetry 97 96 GENERAL: A&O x 3 SKIN: Warm and dry. prevena dressing to chest , janae wrap to left leg HEAD: Normocephalic. EYES: No scleral icterus. No injection or drainage. NECK: Supple, trachea midline. No JVD or lymphadenopathy. CARDIOVASCULAR: Regular rate and rhythm without murmurs, gallops, or rubs. RESPIRATORY: Breath sounds equal bilaterally. No accessory muscle use. crackles left bases, chest tube to wall suction, no air leak / drained 270cc/ 12 hrs GASTROINTESTINAL: Abdomen soft, non-tender, nondistended. MUSCULOSKELETAL: No cyanosis, or edema. BACK: Nontender without obvious deformity. No CVA tenderness. Labs: Laboratory Results - last 12 hr 12/08/17 12/09/17 12/09/17 22:41 00:15 02:57 WBC RBC Hgb Hct MCV MCH MCHC RDW Plt Count MPV Sodium Potassium Chloride Carbon Dioxide Anion Gap BUN Creatinine Estimated GFR POC Glucose 108 111 H 85 Random Glucose Calcium Magnesium 12/09/17 12/09/17 04:00 04:00 WBC 7.6 RBC 3.48 L Hgb 10.9 L Hct 30.7 L MCV 88.2 MCH 31.2 MCHC 35.4 RDW 13.7 Plt Count 149 L MPV 7.8 Sodium 144 Potassium 4.0 Chloride 108 H Carbon Dioxide 25.4 Anion Gap 11 BUN 15 Creatinine 0.51 L Estimated GFR Greater than 89 POC Glucose Random Glucose 90 Calcium 7.8 L Magnesium 2.4 Result Diagrams: 12/09/17 04:00 12/09/17 04:00 Telemetry: NSR - Plan (1) CAD (coronary artery disease), [place] coronary artery (2) CKD (chronic kidney disease) stage 3, GFR 30-59 ml/min Plan: avoid diuresis if possible will dc toradol (3) Hyperlipidemia (4) Hypertension Plan: add home JANAE, add low dose BB (5) S/P CABG (coronary artery bypass graft) Plan: on ASA, statin , BB OOB, ambulate pulm toileting treat nausea / add low dose reglan transfer to stepdown (7) Alcohol dependence (1) CAD (coronary artery disease), [place] coronary artery Qualifiers: [place] vs. transplanted heart: [place] heart (3) Hyperlipidemia Qualifiers: Hyperlipidemia type: mixed hyperlipidemia Qualified Code(s): E78.2 - Mixed hyperlipidemia (4) Hypertension Qualifiers: Hypertension type: essential hypertension Qualified Code(s): I10 - Essential (primary) hypertension (7) Alcohol dependence Qualifiers: Substance use status: uncomplicated Qualified Code(s): F10.20 - Alcohol dependence, uncomplicated
[2017-12-09] MEDS: Insulin NovoLOG Aspart Correctional Sugar Inj SQ SCH ×5 (10:24→23:15)
--- NOTE | 2017-12-09 10:24 | P.DIET ---
Nutritional Evaluation Screening comments: MDC for diet education s/p CABG x 2 on 12/08. Patient Navigator to provide education. Consult RD if complexities with diet education arise.
[2017-12-09] MEDS: Docusate Sodium 100 MG Capsule PO SCH (21:00)
[2017-12-10] MEDS: Insulin NovoLOG Aspart Correctional Sugar Inj SQ SCH ×6 (02:46→22:37)
[2017-12-10 05:19] LABS: Baso % (Auto) 0.2 % (0.0-2.0); Eos # (Auto) 0.1 th/mm3 (0.0-0.4); Eos % (Auto) 1.1 % (0.0-4.0); Hematocrit 29.4 % (39.0-51.0); Hemoglobin 10.4 gm/dL (13.0-17.0); Lymph # (Auto) 1.2 th/mm3 (1.0-4.8); Lymph % (Auto) 14.1 % (9.0-44.0); Mean Corpuscular HGB Conc 35.3 % (32.0-36.0); Mean Corpuscular Hemoglobin 31.2 pg (27.0-34.0); Mean Corpuscular Volume 88.3 fL (80.0-100.0); Mean Platelet Volume 7.6 fL (7.0-11.0); Mono # (Auto) 0.8 th/mm3 (0.0-0.9); Mono % (Auto) 9.2 % (0.0-8.0); Neut # (Auto) 6.6 th/mm3 (1.8-7.7); Neut % (Auto) 75.4 % (16.0-70.0); Platelet Count 142 th/mm3 (150-450); Red Blood Count 3.33 mil/mm3 (4.50-5.90); Red Cell Distribution Width 13.4 % (11.6-17.2); White Blood Count 8.8 th/mm3 (4.0-11.0)
[2017-12-10 05:41] LABS: Anion Gap 8 meq/L (5-15); Blood Urea Nitrogen 13 mg/dL (7-18); Calcium 7.5 mg/dL (8.5-10.1); Carbon Dioxide 27.7 meq/L (21.0-32.0); Chloride 105 meq/L (98-107); Glomerular Filtration Rate Greater Than 89 mL/min (>89); Glucose,Random 90 mg/dL (74-106); Magnesium 2.2 mg/dL (1.5-2.5); Potassium 3.8 meq/L (3.5-5.1); Sodium 141 meq/L (136-145)
[2017-12-10] MEDS: Multivitamin/Minerals Therapeutic Tablet PO SCH (08:42)
[2017-12-10] MEDS: Metoprolol Tartrate 25 MG Tablet PO SCH ×2 (08:42→22:37)
[2017-12-10] MEDS: Docusate Sodium 100 MG Capsule PO SCH ×2 (08:42→20:42)
[2017-12-10] MEDS: Amiodarone 200 MG Tablet PO SCH ×2 (08:42→20:42)
[2017-12-10] MEDS: Polyethylene Glycol 3350 17 GM Packet PO SCH (08:43)
--- NOTE | 2017-12-10 09:58 | P.PNCV ---
- Note Subjective/Hospital Course: pt seen and evaluated 11/25/17. 82-year-old patient of Dr. Strauss and Dr. Marcos Pelaez who was being worked up for clearance for a left hip surgery. He was to undergo orthopedic surgery by Dr. Bhatia. He presented to Dr. Strauss for preop risk stratification. He underwent cardiac stress test with Lexiscan that showed an EF greater than 65%, moderate ischemia of the inferior and inferoapical wall, which led to heart catheterization today, which showed a 50% left main, proximal LAD 90%, the mid distal 20, the OM 50, the RCA 40%, the circ was 30. We were consulted to evaluate for coronary artery bypass grafting. The patient denies any recent chest pain or shortness of breath. He has usually been very active up until 6 weeks ago. He has had more pain in his left hip where he has been using a cane. PAST MEDICAL HISTORY: Includes abdominal aortic aneurysm with repair and EVAR Medtronic graft in 05/2009, history of pancreatitis, alcohol dependence. 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 12/08 pt electively admitted for surgery surgery: PREPROCEDURE DIAGNOSES 1. Severe Two Vessel Coronary Artery Disease. 2. Abdominal aortic aneurysm status post EVAR 3. Chronic alcohol use 4. Chronic kidney disease POSTPROCEDURE DIAGNOSES Same SURGICAL PROCEDURE 1. Off-pump Coronary Artery Bypass Grafting x 2 with Left Internal Mammary Artery (BIANCHI) to Left Anterior Descending (LAD), reverse saphenous vein graft to obtuse Marginal branch of the left Circumflex artery 2. Left leg Endoscopic Vein [place] pt extubated after surgery 12/09 up in chair , on 2 liter nasal cannula pain controlled, in NSR on amiodarone, low dose BB, start DYLAN ( home med) transfer to stepdown unit had some nausea this am , reglan scheduled x 4 doses OOB with PT 12/10 no further nausea remains in NSR, BP stable still has few crackles in bases, gentle diuresis leave chest tubes in for now Objective: Vital Signs - 24 hr 12/09/17 11:53 12/09/17 13:22 12/09/17 14:00 Temperature 98.1 F Pulse Rate 75 88 78 Respiratory Rate 18 18 Blood Pressure 126/57 L Pulse Oximetry 96 12/09/17 15:00 12/09/17 16:00 12/09/17 17:26 Temperature 98 F Pulse Rate 81 76 82 Respiratory Rate 18 Blood Pressure 110/59 L Pulse Oximetry 97 12/09/17 19:00 12/09/17 20:19 12/09/17 23:00 Temperature 98.8 F Pulse Rate 94 H 83 76 Respiratory Rate 18 15 Blood Pressure 117/58 L Pulse Oximetry 95 97 12/10/17 00:00 12/10/17 01:00 12/10/17 02:00 Temperature Pulse Rate 78 76 76 Respiratory Rate Blood Pressure Pulse Oximetry 12/10/17 02:49 12/10/17 03:00 12/10/17 07:00 Temperature 98.5 F Pulse Rate 76 71 69 Respiratory Rate 16 Blood Pressure 115/58 L Pulse Oximetry 96 12/10/17 08:34 Temperature Pulse Rate 84 Respiratory Rate 16 Blood Pressure Pulse Oximetry 92 L GENERAL: A&O x 3 SKIN: Warm and dry. prevena dressing to chest , incision intact to left leg HEAD: Normocephalic. EYES: No scleral icterus. No injection or drainage. NECK: Supple, trachea midline. No JVD or lymphadenopathy. CARDIOVASCULAR: Regular rate and rhythm without murmurs, gallops, or rubs. RESPIRATORY: Breath sounds equal bilaterally. No accessory muscle use. chest tube to wall suction/ drained 150cc/ 12 hrs / no air leak few crackles in bases GASTROINTESTINAL: Abdomen soft, non-tender, nondistended. MUSCULOSKELETAL: No cyanosis, or edema. BACK: Nontender without obvious deformity. No CVA tenderness. Labs: Laboratory Results - last 12 hr 12/09/17 12/10/17 12/10/17 22:25 02:43 04:30 WBC 8.8 RBC 3.33 L Hgb 10.4 L Hct 29.4 L MCV 88.3 MCH 31.2 MCHC 35.3 RDW 13.4 Plt Count 142 L MPV 7.6 Neut % (Auto) 75.4 H Lymph % (Auto) 14.1 [place] % (Auto) 9.2 H Eos % (Auto) 1.1 Baso % (Auto) 0.2 Neut # (Auto) 6.6 Lymph # (Auto) 1.2 [place] # (Auto) 0.8 Eos # (Auto) 0.1 Baso # (Auto) 0.0 WBC Differential . Differential Comment Auto diff final Sodium Potassium Chloride Carbon Dioxide Anion Gap BUN Creatinine Estimated GFR POC Glucose 140 H 130 H Random Glucose Calcium Magnesium 12/10/17 04:30 WBC RBC Hgb Hct MCV MCH MCHC RDW Plt Count MPV Neut % (Auto) Lymph % (Auto) [place] % (Auto) Eos % (Auto) Baso % (Auto) Neut # (Auto) Lymph # (Auto) [place] # (Auto) Eos # (Auto) Baso # (Auto) WBC Differential Differential Comment Sodium 141 Potassium 3.8 Chloride 105 Carbon Dioxide 27.7 Anion Gap 8 BUN 13 Creatinine 0.58 L Estimated GFR Greater than 89 POC Glucose Random Glucose 90 Calcium 7.5 L Magnesium 2.2 Result Diagrams: 12/10/17 04:30 12/10/17 04:30 Telemetry: NSR - Plan (1) CAD (coronary artery disease), [place] coronary artery (2) CKD (chronic kidney disease) stage 3, GFR 30-59 ml/min Plan: avoid diuresis if possible will dc toradol (3) Hyperlipidemia Plan: on statin (4) Hypertension Plan: add home DYLAN, add low dose BB (5) S/P CABG (coronary artery bypass graft) Plan: on ASA, statin , BB OOB, ambulate pulm toileting leave chest tube in for now home with C at discharge (7) Alcohol dependence (1) CAD (coronary artery disease), [place] coronary artery Qualifiers: [place] vs. transplanted heart: [place] heart (3) Hyperlipidemia Qualifiers: Hyperlipidemia type: mixed hyperlipidemia Qualified Code(s): E78.2 - Mixed hyperlipidemia (4) Hypertension Qualifiers: Hypertension type: essential hypertension Qualified Code(s): I10 - Essential (primary) hypertension (7) Alcohol dependence Qualifiers: Substance use status: uncomplicated Qualified Code(s): F10.20 - Alcohol dependence, uncomplicated
[2017-12-11] MEDS: Insulin NovoLOG Aspart Correctional Sugar Inj SQ SCH ×6 (03:11→20:51)
[2017-12-11 05:55] LABS: Anion Gap 8 meq/L (5-15); Blood Urea Nitrogen 15 mg/dL (7-18); Calcium 8.2 mg/dL (8.5-10.1); Chloride 104 meq/L (98-107); Glomerular Filtration Rate Greater Than 89 mL/min (>89); Glucose,Random 87 mg/dL (74-106); Magnesium 2.2 mg/dL (1.5-2.5); Sodium 138 meq/L (136-145)
[2017-12-11] MEDS ORDERED: Sod Phosphate/Sod Biphosphate (Adult) Enema 133 ML Bottle RECTAL PRN (09:00)
[2017-12-11] MEDS: Docusate Sodium 100 MG Capsule PO SCH ×2 (09:34→20:50)
[2017-12-11] MEDS: Amiodarone 200 MG Tablet PO SCH ×2 (09:34→20:50)
[2017-12-11] MEDS: Metoprolol Tartrate 25 MG Tablet PO SCH ×2 (09:34→20:49)
[2017-12-11] MEDS: Multivitamin/Minerals Therapeutic Tablet PO SCH (09:35)
[2017-12-11] MEDS: Polyethylene Glycol 3350 17 GM Packet PO SCH (09:43)
--- NOTE | 2017-12-11 10:35 | P.PNCV ---
- Note CVT: Post Op Day #: 3 Subjective/Hospital Course: pt seen and evaluated 11/25/17. 82-year-old patient of Dr. Strauss and Dr. Marcos Pelaez who was being worked up for clearance for a left hip surgery. He was to undergo orthopedic surgery by Dr. Bhatia. He presented to Dr. Strauss for preop risk stratification. He underwent cardiac stress test with Lexiscan that showed an EF greater than 65%, moderate ischemia of the inferior and inferoapical wall, which led to heart catheterization today, which showed a 50% left main, proximal LAD 90%, the mid distal 20, the OM 50, the RCA 40%, the circ was 30. We were consulted to evaluate for coronary artery bypass grafting. The patient denies any recent chest pain or shortness of breath. He has usually been very active up until 6 weeks ago. He has had more pain in his left hip where he has been using a cane. PAST MEDICAL HISTORY: Includes abdominal aortic aneurysm with repair and EVAR Medtronic graft in 05/2009, history of pancreatitis, alcohol dependence. 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 12/08 pt electively admitted for surgery surgery: PREPROCEDURE DIAGNOSES 1. Severe Two Vessel Coronary Artery Disease. 2. Abdominal aortic aneurysm status post EVAR 3. Chronic alcohol use 4. Chronic kidney disease POSTPROCEDURE DIAGNOSES Same SURGICAL PROCEDURE 1. Off-pump Coronary Artery Bypass Grafting x 2 with Left Internal Mammary Artery (BIANCHI) to Left Anterior Descending (LAD), reverse saphenous vein graft to obtuse Marginal branch of the left Circumflex artery 2. Left leg Endoscopic Vein [place] pt extubated after surgery 12/09 up in chair , on 2 liter nasal cannula pain controlled, in NSR on amiodarone, low dose BB, start DYLAN ( home med) transfer to stepdown unit had some nausea this am , reglan scheduled x 4 doses OOB with PT 12/10 no further nausea remains in NSR, BP stable still has few crackles in bases, gentle diuresis leave chest tubes in for now 12/11 Doing well Objective: Vital Signs - 24 hr 12/10/17 11:00 12/10/17 12:00 12/10/17 13:00 Temperature 98.3 F Pulse Rate 78 88 82 Respiratory Rate 18 Blood Pressure 120/58 L Pulse Oximetry 91 L 12/10/17 14:00 12/10/17 14:43 12/10/17 15:00 Temperature 99.7 F H Pulse Rate 80 78 106 H Respiratory Rate 18 18 Blood Pressure 106/58 L Pulse Oximetry 94 L 12/10/17 16:00 12/10/17 17:00 12/10/17 18:00 Temperature Pulse Rate 74 74 80 Respiratory Rate Blood Pressure Pulse Oximetry 12/10/17 19:00 12/10/17 20:00 12/10/17 20:18 Temperature 98.9 F Pulse Rate 82 82 81 Respiratory Rate 18 16 Blood Pressure 126/59 L Pulse Oximetry 92 L 92 L 12/10/17 21:00 12/10/17 22:00 12/10/17 23:00 Temperature 99.1 F Pulse Rate 86 84 80 Respiratory Rate 18 Blood Pressure 107/57 L Pulse Oximetry 94 L 12/11/17 00:00 12/11/17 01:00 12/11/17 02:00 Temperature Pulse Rate 67 68 75 Respiratory Rate Blood Pressure Pulse Oximetry 12/11/17 03:00 12/11/17 04:00 12/11/17 07:00 Temperature 97.9 F 97.9 F Pulse Rate 68 64 65 Respiratory Rate 18 18 Blood Pressure 107/56 L 126/62 Pulse Oximetry 94 L 94 L 12/11/17 09:06 Temperature Pulse Rate 80 Respiratory Rate 16 Blood Pressure Pulse Oximetry 94 L Labs: Laboratory Results - last 12 hr 12/08/17 12/10/17 12/11/17 06:42 22:27 03:08 Sodium Potassium Chloride Carbon Dioxide Anion Gap BUN Creatinine Estimated GFR POC Glucose 149 H 96 Random Glucose Calcium Magnesium MTS Gel Crossmatch See Detail 12/11/17 12/11/17 05:05 05:14 Sodium 138 Potassium 4.0 Chloride 104 Carbon Dioxide 26.0 Anion Gap 8 BUN 15 Creatinine 0.68 Estimated GFR Greater than 89 POC Glucose 101 Random Glucose 87 Calcium 8.2 L Magnesium 2.2 MTS Gel Crossmatch Result Diagrams: 12/10/17 04:30 12/11/17 05:05 Imaging: Chest X-Ray 12/09/17 05:00 CONCLUSION: 1. Stable tubes and lines. 2. Improving atelectasis in the left upper lung zone. 3. Progressive airspace disease in the left lung base. 4. No significant pneumothorax. Cardiovascular: RRR Telemetry: NSR Pulmonary: CTA GI/: NABS, NT Incision: dry and intact CT: 100 ml since 6 AM, no air leak - Plan (1) CAD (coronary artery disease), [place] coronary artery (2) CKD (chronic kidney disease) stage 3, GFR 30-59 ml/min Plan: avoid diuresis if possible will dc toradol (3) Hyperlipidemia Plan: on statin (4) Hypertension Plan: add home DYLAN, add low dose BB (5) S/P CABG (coronary artery bypass graft) Plan: on ASA, statin , BB OOB, ambulate pulm toileting leave chest tube in for now home with [facility]HC at discharge Continue chest tubes to water seal Encourage ambulation Stim BM Discharge planning (1) CAD (coronary artery disease), [place] coronary artery Qualifiers: [place] vs. transplanted heart: [place] heart (3) Hyperlipidemia Qualifiers: Hyperlipidemia type: mixed hyperlipidemia Qualified Code(s): E78.2 - Mixed hyperlipidemia (4) Hypertension Qualifiers: Hypertension type: essential hypertension Qualified Code(s): I10 - Essential (primary) hypertension
[2017-12-11] MEDS: Melatonin 5 MG Tablet PO PRN (20:50)
[2017-12-12] MEDS: Insulin NovoLOG Aspart Correctional Sugar Inj SQ SCH ×4 (09:04→20:45)
--- NOTE | 2017-12-12 09:06 | P.PNCV ---
- Note CVT: Post Op Day #: 4 Subjective/Hospital Course: pt seen and evaluated 11/25/17. 82-year-old patient of Dr. Strauss and Dr. Marcos Pelaez who was being worked up for clearance for a left hip surgery. He was to undergo orthopedic surgery by Dr. Bhatia. He presented to Dr. Strauss for preop risk stratification. He underwent cardiac stress test with Lexiscan that showed an EF greater than 65%, moderate ischemia of the inferior and inferoapical wall, which led to heart catheterization today, which showed a 50% left main, proximal LAD 90%, the mid distal 20, the OM 50, the RCA 40%, the circ was 30. We were consulted to evaluate for coronary artery bypass grafting. The patient denies any recent chest pain or shortness of breath. He has usually been very active up until 6 weeks ago. He has had more pain in his left hip where he has been using a cane. PAST MEDICAL HISTORY: Includes abdominal aortic aneurysm with repair and EVAR Medtronic graft in 05/2009, history of pancreatitis, alcohol dependence. 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 12/08 pt electively admitted for surgery surgery: PREPROCEDURE DIAGNOSES 1. Severe Two Vessel Coronary Artery Disease. 2. Abdominal aortic aneurysm status post EVAR 3. Chronic alcohol use 4. Chronic kidney disease POSTPROCEDURE DIAGNOSES Same SURGICAL PROCEDURE 1. Off-pump Coronary Artery Bypass Grafting x 2 with Left Internal Mammary Artery (BIANCHI) to Left Anterior Descending (LAD), reverse saphenous vein graft to obtuse Marginal branch of the left Circumflex artery 2. Left leg Endoscopic Vein [place] pt extubated after surgery 12/09 up in chair , on 2 liter nasal cannula pain controlled, in NSR on amiodarone, low dose BB, start DYLAN ( home med) transfer to stepdown unit had some nausea this am , reglan scheduled x 4 doses OOB with PT 12/10 no further nausea remains in NSR, BP stable still has few crackles in bases, gentle diuresis leave chest tubes in for now 12/11 Doing well 12/12/17 No complaints, doing well this morning Objective: Vital Signs - 24 hr 12/11/17 09:06 12/11/17 10:00 12/11/17 11:00 Temperature 98 F Pulse Rate 80 73 78 Respiratory Rate 16 18 Blood Pressure 110/62 Pulse Oximetry 94 L 96 12/11/17 12:00 12/11/17 13:00 12/11/17 14:00 Temperature Pulse Rate 74 73 72 Respiratory Rate Blood Pressure Pulse Oximetry 12/11/17 15:00 12/11/17 16:00 12/11/17 17:00 Temperature 98.1 F Pulse Rate 70 72 78 Respiratory Rate 18 Blood Pressure 123/60 Pulse Oximetry 94 L 12/11/17 18:00 12/11/17 19:00 12/11/17 20:00 Temperature 98.0 F Pulse Rate 84 73 81 Respiratory Rate 18 Blood Pressure 121/59 L Pulse Oximetry 94 L 12/11/17 21:00 12/11/17 22:00 12/11/17 23:00 Temperature 98.1 F Pulse Rate 76 71 59 L Respiratory Rate 20 Blood Pressure 148/71 H Pulse Oximetry 96 12/12/17 00:00 12/12/17 01:00 12/12/17 02:00 Temperature Pulse Rate 67 64 67 Respiratory Rate Blood Pressure Pulse Oximetry 12/12/17 03:00 12/12/17 03:57 12/12/17 05:00 Temperature 98 F Pulse Rate 66 65 81 Respiratory Rate 20 Blood Pressure 120/61 Pulse Oximetry 95 12/12/17 06:00 12/12/17 06:23 12/12/17 07:00 Temperature 98.1 F Pulse Rate 67 68 Respiratory Rate 16 18 Blood Pressure 139/71 Pulse Oximetry 95 12/12/17 08:00 12/12/17 08:41 Temperature Pulse Rate 69 Respiratory Rate Blood Pressure Pulse Oximetry 95 93 L Labs: Laboratory Results - last 12 hr 12/12/17 08:42 POC Glucose 94 Result Diagrams: 12/10/17 04:30 12/11/17 05:05 Imaging: Chest X-Ray 12/09/17 05:00 CONCLUSION: 1. Stable tubes and lines. 2. Improving atelectasis in the left upper lung zone. 3. Progressive airspace disease in the left lung base. 4. No significant pneumothorax. Cardiovascular: RRR Pulmonary: CTA GI/: NABS Incision: dry and intact CT: 80ml/12hrs - Plan (1) CAD (coronary artery disease), [place] coronary artery (2) CKD (chronic kidney disease) stage 3, GFR 30-59 ml/min Plan: avoid diuresis if possible will dc toradol (3) Hyperlipidemia Plan: on statin (4) Hypertension Plan: add home DYLAN, add low dose BB (5) S/P CABG (coronary artery bypass graft) Plan: on ASA, statin , BB OOB, ambulate pulm toileting leave chest tube in for now home with HHC at discharge Remove chest tubes Increase lopressor dose Anticipate D/C in AM (1) CAD (coronary artery disease), [place] coronary artery Qualifiers: [place] vs. transplanted heart: [place] heart (3) Hyperlipidemia Qualifiers: Hyperlipidemia type: mixed hyperlipidemia Qualified Code(s): E78.2 - Mixed hyperlipidemia (4) Hypertension Qualifiers: Hypertension type: essential hypertension Qualified Code(s): I10 - Essential (primary) hypertension
[2017-12-12] MEDS: Amiodarone 200 MG Tablet PO SCH ×2 (09:49→20:45)
[2017-12-12] MEDS: Multivitamin/Minerals Therapeutic Tablet PO SCH (09:49)
[2017-12-12] MEDS: Polyethylene Glycol 3350 17 GM Packet PO SCH (09:50)
[2017-12-12] MEDS: Docusate Sodium 100 MG Capsule PO SCH ×2 (09:50→20:46)
[2017-12-12] MEDS: Metoprolol Tartrate 25 MG Tablet PO SCH ×2 (10:08→20:44)
[2017-12-12] MEDS: Melatonin 5 MG Tablet PO PRN (20:44)
[2017-12-13 03:45] VITALS: BP 122/60
[2017-12-13 08:03] VITALS: TEMP 98.1; O2SAT 94
[2017-12-13] MEDS: Amiodarone 200 MG Tablet PO SCH (08:56)
[2017-12-13] MEDS: Metoprolol Tartrate 25 MG Tablet PO SCH (08:56)
[2017-12-13] MEDS: Multivitamin/Minerals Therapeutic Tablet PO SCH (08:56)
[2017-12-13] MEDS: Docusate Sodium 100 MG Capsule PO SCH (08:57)
[2017-12-13] MEDS: Insulin NovoLOG Aspart Correctional Sugar Inj SQ SCH (08:57)
[2017-12-13] MEDS: Polyethylene Glycol 3350 17 GM Packet PO SCH (08:58)
[2017-12-13 11:55] LABS: Anion Gap 9 meq/L (5-15); Blood Urea Nitrogen 15 mg/dL (7-18); Calcium 8.7 mg/dL (8.5-10.1); Carbon Dioxide 28.3 meq/L (21.0-32.0); Chloride 103 meq/L (98-107); Glomerular Filtration Rate Greater Than 89 mL/min (>89); Glucose,Random 99 mg/dL (74-106); Magnesium 2.6 mg/dL (1.5-2.5); Potassium 4.3 meq/L (3.5-5.1); Sodium 140 meq/L (136-145)
[2017-12-13 12:06] VITALS: RESP 16
--- NOTE | 2017-12-13 13:20 | P.DS ---
Date of admission: 12/08/17 05:55 Primary care physician: Vega Farris Attending physician on discharge: Shellie Patino Anticipated date of discharge: 12/13/17 Brief History from admission: pt seen and evaluated 11/25/17. 82-year-old patient of Dr. Strauss and Dr. Marcos Pelaez who was being worked up for clearance for a left hip surgery. He was to undergo orthopedic surgery by Dr. Bhatia. He presented to Dr. Strauss for preop risk stratification. He underwent cardiac stress test with Lexiscan that showed an EF greater than 65%, moderate ischemia of the inferior and inferoapical wall, which led to heart catheterization today, which showed a 50% left main, proximal LAD 90%, the mid distal 20, the OM 50, the RCA 40%, the circ was 30. We were consulted to evaluate for coronary artery bypass grafting. The patient denies any recent chest pain or shortness of breath. He has usually been very active up until 6 weeks ago. He has had more pain in his left hip where he has been using a cane. PAST MEDICAL HISTORY: Includes abdominal aortic aneurysm with repair and EVAR Medtronic graft in 05/2009, history of pancreatitis, alcohol dependence. 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 Patient update on day of discharge: pt doing well pain control labs checked within normal limits NSR with occasional PVC on amiodarone and metoprolol on ASA, statin DS: Diagnosis - Discharge Diagnosis (1) CAD (coronary artery disease), [place] coronary artery Status: Acute (2) CKD (chronic kidney disease) stage 3, GFR 30-59 ml/min Status: Chronic (3) Hyperlipidemia Status: Chronic (4) Hypertension Status: Chronic (5) S/P CABG (coronary artery bypass graft) Status: Acute (6) Hx of pancreatitis Status: Chronic (7) Alcohol dependence Status: Chronic DS: Medications - Discharge Medications Prescriptions: amiodarone 200 mg PO Q12HR #28 tab aspirin 81 mg PO DAILY #30 tab clopidogrel [Plavix] 75 mg PO DAILY #30 tab docusate sodium [DOK] 100 mg PO BID #60 cap hydrocodone-acetaminophen 1 tab PO Q4H PRN #30 tab PRN Reason: Pain Scale 1 To 5 metoprolol tartrate 25 mg PO BID #60 tab vcyjdhju-kamc-LQ-calcium-mins [Thera M Plus (ferrous fumarat)] 1 tab PO DAILY # 30 tab DS: Summary Hospital Course: 12/08 pt electively admitted for surgery surgery: PREPROCEDURE DIAGNOSES 1. Severe Two Vessel Coronary Artery Disease. 2. Abdominal aortic aneurysm status post EVAR 3. Chronic alcohol use 4. Chronic kidney disease POSTPROCEDURE DIAGNOSES Same SURGICAL PROCEDURE 1. Off-pump Coronary Artery Bypass Grafting x 2 with Left Internal Mammary Artery (BIANCHI) to Left Anterior Descending (LAD), reverse saphenous vein graft to obtuse Marginal branch of the left Circumflex artery 2. Left leg Endoscopic Vein [place] pt extubated after surgery 12/09 up in chair , on 2 liter nasal cannula pain controlled, in NSR on amiodarone, low dose BB, start DYLAN ( home med) transfer to stepdown unit had some nausea this am , reglan scheduled x 4 doses OOB with PT 12/10 no further nausea remains in NSR, BP stable still has few crackles in bases, gentle diuresis leave chest tubes in for now 12/11 Doing well 12/12/17 No complaints, doing well this morning 12/13 stable for dc home today - Time Spent with Patient Total time spent providing and/or coordinating discharge services: Greater than 30 minutes - Quality: VTE Deep Vein Thrombosis/Pulmonary Embolism Present on Admission: No Exam Vital signs: Vital Signs 12/12/17 14:00 12/12/17 15:00 12/12/17 16:00 Temperature 98.4 F Pulse Rate 72 73 69 Respiratory Rate 18 Blood Pressure 114/62 Pulse Oximetry 95 12/12/17 17:00 12/12/17 18:00 12/12/17 19:00 Temperature Pulse Rate 87 78 74 Respiratory Rate Blood Pressure Pulse Oximetry 12/12/17 19:52 12/12/17 19:53 12/12/17 21:00 Temperature 97.8 F Pulse Rate 78 75 74 Respiratory Rate 20 Blood Pressure 126/63 Pulse Oximetry 96 12/12/17 22:00 12/12/17 22:08 12/12/17 23:00 Temperature Pulse Rate 64 61 Respiratory Rate 18 Blood Pressure Pulse Oximetry 12/12/17 23:27 12/13/17 00:00 12/13/17 01:00 Temperature 98.2 F Pulse Rate 62 67 64 Respiratory Rate 18 Blood Pressure 125/69 Pulse Oximetry 97 12/13/17 02:00 12/13/17 03:00 12/13/17 03:44 Temperature 97.8 F Pulse Rate 61 62 65 Respiratory Rate 20 Blood Pressure 122/60 Pulse Oximetry 96 12/13/17 03:45 12/13/17 04:59 12/13/17 06:00 Temperature Pulse Rate 60 69 64 Respiratory Rate Blood Pressure Pulse Oximetry 12/13/17 08:00 12/13/17 12:05 Temperature 98.1 F Pulse Rate 73 Respiratory Rate 17 16 Blood Pressure Pulse Oximetry 94 L Intake & Output 12/12/17 12/13/17 12/13/17 18:59 06:59 18:59 Intake Total 480 / 480 720 / 720 Output Total 400 / 400 1300 / 1300 Balance 80 / 80 -580 / -580 Weight 89.5 kg Intake: Oral 480 / 480 720 / 720 Output: Urine 400 / 400 1300 / 1300 Other: Date of Last Bowel Movement 12/11/17 12/12/17 - Constitutional no acute distress - Routine HEENT Exam Head: Present: normocephalic Eye: Present: EOMI, PERRL, normal accommodation - Routine Neck Exam Present: supple, full ROM - Routine Chest/Breast/Axilla Exam Chest wall: Present: tenderness - Routine Respiratory Exam Present: accessory muscle use, CTA bilaterally - Routine Cardiovascular Exam Present: RRR, S1, S2 - Routine Abdominal Exam Present: soft, normoactive bowel sounds - Routine Extremities Exam Present: full ROM, pulses intact, normal capillary refill - Routine Skin Exam Present: intact, wounds Comments: prevena dressing in place to chest left leg incision intact - Routine Neurological Exam Present: alert, oriented X3, CN II-XII intact Results Procedures completed during hospitalization: 12/08 PREPROCEDURE DIAGNOSES 1. Severe Two Vessel Coronary Artery Disease. 2. Abdominal aortic aneurysm status post EVAR 3. Chronic alcohol use 4. Chronic kidney disease POSTPROCEDURE DIAGNOSES Same SURGICAL PROCEDURE 1. Off-pump Coronary Artery Bypass Grafting x 2 with Left Internal Mammary Artery (BIANCHI) to Left Anterior Descending (LAD), reverse saphenous vein graft to obtuse Marginal branch of the left Circumflex artery 2. Left leg Endoscopic Vein [place] 3. Intraoperative Vein Mapping. Labs on day of discharge: Labs from last 24 hours 12/13/17 12/13/17 12/13/17 11:20 11:09 11:09 Sodium 140 Potassium 4.3 Chloride 103 Carbon Dioxide 28.3 Anion Gap 9 BUN 15 Creatinine 0.80 Estimated GFR Greater than 89 POC Glucose 109 Random Glucose 99 Calcium 8.7 Phosphorus 3.0 Magnesium 2.6 H 12/13/17 12/12/17 12/12/17 08:22 19:14 16:49 Sodium Potassium Chloride Carbon Dioxide Anion Gap BUN Creatinine Estimated GFR POC Glucose 102 180 H 113 H Random Glucose Calcium Phosphorus Magnesium - Impressions ITS Impressions Chest X-Ray 12/09/17 05:00 CONCLUSION: 1. Stable tubes and lines. 2. Improving atelectasis in the left upper lung zone. 3. Progressive airspace disease in the left lung base. 4. No significant pneumothorax. Discharge Plan - Discharge Disposition Patient Disposition: W/Home Health Service - Discharge Condition Condition: Good - Discharge Order Discharge Orders: Discharge Order (Routine); Ordered 12/13/17 Ordered By: Lo Richard - Discharge Details Anticipated Discharge Date: 12/12/17 - Physicians Team Attending Provider: Shellie Patino Other Providers: Marge,Marge ; [facility] - Rxs /Orders / Referrals /Forms Prescriptions: New amiodarone 200 mg Tablet 200 mg PO Q12HR Qty: 28 RF: 0 aspirin 81 mg Tablet,Chewable 81 mg PO DAILY Qty: 30 RF: 2 clopidogrel [Plavix] 75 mg Tablet 75 mg PO DAILY Qty: 30 RF: 2 docusate sodium [DOK] 100 mg Capsule 100 mg PO BID Qty: 60 RF: 0 hydrocodone-acetaminophen 5-325 mg Tablet 1 tab PO Q4H PRN (Reason: Pain Scale 1 To 5) Qty: 30 RF: 0 metoprolol tartrate 25 mg Tablet 25 mg PO BID Qty: 60 RF: 2 dzcozwic-ykqn-NU-calcium-mins [Thera M Plus (ferrous fumarat)] 9 mg iron-400 mcg Tablet 1 tab PO DAILY Qty: 30 RF: 2 Continue atorvastatin 20 mg Tablet 20 mg PO DAILY enalapril maleate 10 mg Tablet 10 mg PO DAILY Referrals: Vega Farris [Other] - See Instructions ( Please call the physician 's office to book the appointment to be seen within [2 WEEKS OF DISCHARGE].) Lo Richard [[facility] RN PRACTITIONER] - See Instructions ( Your appointment has been scheduled for [12/28/17] at [11:15 AM] If you cannot make this appointment, please call the office to reschedule ) Sony Strauss, [Physician] - See Instructions ( Your appointment has been scheduled for [01/11/18] at [1:45 PM] If you cannot make this appointment, please call the office to reschedule ) - Discharge Instructions Additional Instructions: HOME HEALTH CARE HAS BEEN ARRANGED WITH DR'S CHOICE, CONTACT#[phone] PREVENA Single Use Negative Wound Therapy System Caregiver Instruction Sheet 1. A Prevena dressing system was applied to the chest incision during surgery , to promote wound healing. It works via a suction device (negative pressure wound therapy) to remove low to moderate levels of exudate (drainage) and infectious materials. We recommend that the device stay in place for up to seven days, from day of surgery. 2. Day of Surgery___12/08/17 Day of Removal ____12/15/17 3. The dressing should only be removed by a health long term care administrator. Please arrange removal of device to coincide with Home Health visit and or with Nursing staff at Rehab 4. If skin reddening or irritation of skin occurs, or excessive drainage, please notify the Cardiovascular Surgeons office at [phone]. 5. Light showering is permissible; however the pump should be disconnected and placed in safe location, where it will not get wet. The dressing should not be exposed to direct spray or submerged in water. No bath tub / shower only. Ensure the end of the tubing attached to the dressing is facing down so that water does not enter the top of the tube. 6. To remove Prevena dressing: press purple button to turn off device / remove the suction. Then disconnect the tubing from the pump. The fixation strips should be stretched away from the skin and the dressing lifted at one corner and peeled back until it has been fully removed. 7. After removal, it is ok to shower daily using liquid dial soap and clean wash cloth, rinse and pat dry, and leave incision open to air dry. For any concerns regarding Prevena dressing, and or wounds, please contact Mona Butt, patient navigator at [phone] or notify the Cardiovascular Surgeons office at [phone]. Incentive spirometry Q1 hr x 10, while awake, also use acapella device hourly whole awake Sternal Breast Bone Precautions: NO pushing or pulling, ( pt must use sternal pillow to support chest with all activities and with coughing ( takes up to 3 months breast bone to heal ) Daily incision care: ok to shower daily, no tub bath. Wash all incisions with liquid dial soap, clean wash cloth to each site, rinse and pat dry. Observe for any signs of infection, such as drainage which is dark yellow, galeano, green or foul smelling. Immediately report to the surgeon any drainage from the chest incision, or legs, and for any abnormal drainage from the chest tube sites. Notify surgeon if any temp >101.5 degrees F. When specialty dressing removed/ or if you do not have one, continue to shower daily as above, then rinse and pat incision dry and paint with betadine daily x 5 days. Allow steri strips to fall off if you have any. Avoid lotions, creams, salves, oils, etc. for the first month Please see attached forms for additional instructions regarding post Open Heart specialty wound vacuum dressings. EARL or Prevena , Dressing to be removed by Nursing staff on __12/15/17 F/U appointment: as per DC instructions: PCP in 2 weeks, CV surgeon 2 weeks, Photography Colorist 3-4 weeks For any questions regarding incisions/ dressing / meds / post op care or above Symptoms, Wednesday 8am-5pm Heart & Vascular Surgery Office ( Dr. Patino & Dr. Rawls), After Hours / Nights (5pm -8am) Weekends and Holidays Please call [facility] Cardiac Intermediate Care Unit (CIC) Charge Nurse
[2017-12-13 15:27] VITALS: PULSE 67
== END 2017-12-13 15:43 | disposition home health service (06) ==
LOC: HSDI 05:55 → HCVI 11:50 → HCPC 12-09 11:15
PROVIDERS: ADMIT Thoracic Surgery (Cardiothoracic Vascular Surgery); ATTEND Thoracic Surgery (Cardiothoracic Vascular Surgery)